=== PATIENT | male | born 1960 | race Caucasian/White ===

== ENCOUNTER 2019-02-19 18:33 | Emergency (ER) | payer BC ==
[~2019-02-19] VITALS: Ht 175.3 cm; Wt 88.5 kg
[2019-02-19 18:43] VITALS: BP 131/60
--- NOTE | 2019-02-19 18:50 | NUR ---
PT WALKED TO ROOM 7 IN STEADY GAIT.
--- NOTE | 2019-02-19 19:15 | NUR ---
ASSUMED CARE OF PATIENT. PT RESTING IN BED COMFORTABLY. PT HAS BANDAGE OVER RIGHT ARM.
--- NOTE | 2019-02-19 19:25 | NUR ---
DR. HAUSER EVALUATING PT AT BEDSIDE
[2019-02-19] MEDS ORDERED: LIDOCAINE MPF 1% 5 ML ONE (19:29)
[2019-02-19] MEDS ORDERED: KETOROLAC 60 MG/2 ML VIAL IM ONE (19:30)
[2019-02-19] MEDS ORDERED: LIDOCAINE 1% 500 MG/ 50 ML VIAL INJ ONE (19:30)
--- NOTE | 2019-02-19 19:48 | NUR ---
DR HAUSER AT BEDSIDE FOR PROCEDURE
--- NOTE | 2019-02-19 20:00 | NUR ---
APPLIED ANABELLA WRAP TO RIGHT ELBOW
[2019-02-19 20:05] VITALS: BP 131/60
--- NOTE | 2019-02-19 20:07 | NUR ---
Patient discharged with v/s stable. Written and verbal after care instructions given and explained. Pt instructed to soak gauze before removing from right arm. Patient alert, oriented and verbalized understanding of instructions. Ambulatory with steady gait. All questions addressed prior to discharge. ID band removed. Patient advised to follow up with PMD. Rx of Bactrim 800mg-160mg, Prednisone 20mg, and [place] 5mg-325mg was given. Patient educated on indication of medication including possible reaction and side effects. Opportunity to ask questions provided and answered.
== END 2019-02-19 20:07 | disposition home or self-care (01) ==
LOC: MED 18:33
DX: L02.413 Cutaneous abscess of right upper limb (principal); L03.113 Cellulitis of right upper limb
CPT/HCPCS: 10060; 96372; 99283; J1885; J2001